=== PATIENT | female | born 1950 | race Caucasian/White ===

== ENCOUNTER → 2016-07-16 | Outpatient (CLI) | payer MEDICARE, OTHER ==
[~2016-07-16] MED LIST: AMITRIPTYLINE H50 M1 PO; AMITRIPTYLINE50 MG PO; ANTI-DIARRHEAL2 MG PO; ASPI325T6 PO; ASPIRIN 81M81 MG/TA2 PO; ASPIRIN E.C. 8181 MG PO; BACTROBAN NASA0.9 GM NS; BIOTIN5000 MCG PO; CALCIUM 600MG+D1 TAB PO; CALCIUM-MAGNES1 EAC1 PO; COZAAR 50MG50 MG/TAB PO; D-31000 IU PO; EPA FISH OIL1 SGL PO; ESTROPIPATE0.75 MG PO; FISH OIL 1000MG1 CAP PO; FLAXSEED OIL1 CAP PO; GLUCOPHAGE XR500 M1 PO; GLUCOSAMINE & C1 CA2 PO; GLUMETZA500 MG PO; HCTZ 25MG TAB25 MG PO; HYDROCODONE/APAP PO; IMODIUM A-D2 MG PO; LEVOTHYROXIN0.075 MG PO; METFORMIN500 MG PO; MOBIC 7.5MG7.5 MG PO; NORCO 325 MG-7.1 TAB PO; OMEGA-3 FISH1000 MG PO; OMEGA-31 SGL PO; PROPRANOLOL HCL40 MG PO; PROTONIX 40MG T40 MG PO; ROXICODONE 55 MG/TAB PO; SENOKOT S 50 MG1 TAB PO; SIMVASTATIN40 MG PO; SYNTHROID0.1 MG/TAB PO; THE MEDICINE S200 M2 PO; TIROSINT100 MC1 PO; ZOCOR 40MG40 MG PO; ZYRTEC 10MG10 MG PO
== END ==
LOC: MC.RAD 10:59
DX: Z12.31 Encounter for screening mammogram for malignant neoplasm of breast (principal)

== ENCOUNTER 2016-09-17 12:52 | Inpatient (IN) | payer MEDICARE, OTHER ==
[~2016-09-17] VITALS: Ht 154.9 cm; Wt 74.0 kg
[~2016-09-17 12:52] MED LIST changes: -AMITRIPTYLINE H50 M1 PO; -ANTI-DIARRHEAL2 MG PO; -ASPI325T6 PO; -ASPIRIN 81M81 MG/TA2 PO; -ASPIRIN E.C. 8181 MG PO; -BACTROBAN NASA0.9 GM NS; -BIOTIN5000 MCG PO; -CALCIUM 600MG+D1 TAB PO; -CALCIUM-MAGNES1 EAC1 PO; -COZAAR 50MG50 MG/TAB PO; -EPA FISH OIL1 SGL PO; -GLUCOPHAGE XR500 M1 PO; -GLUCOSAMINE & C1 CA2 PO; -GLUMETZA500 MG PO; -HCTZ 25MG TAB25 MG PO; -IMODIUM A-D2 MG PO; -MOBIC 7.5MG7.5 MG PO; -NORCO 325 MG-7.1 TAB PO; -OMEGA-3 FISH1000 MG PO; -OMEGA-31 SGL PO; -PROTONIX 40MG T40 MG PO; -ROXICODONE 55 MG/TAB PO; -SENOKOT S 50 MG1 TAB PO; -SYNTHROID0.1 MG/TAB PO; -THE MEDICINE S200 M2 PO; -TIROSINT100 MC1 PO; -ZOCOR 40MG40 MG PO; -ZYRTEC 10MG10 MG PO
[2016-11-28] MEDS ORDERED: HCTZ 25MG TAB25 MG PO (15:54)
[2016-11-28] MEDS ORDERED: SYNTHROID0.1 MG/TAB PO (15:54)
[2016-11-28] MEDS ORDERED: COZAAR 50MG50 MG/TAB PO (15:55)
[2016-11-28] MEDS ORDERED: MOBIC 7.5MG7.5 MG PO (15:56)
[2016-11-28] MEDS ORDERED: GLUCOPHAGE XR500 M1 PO (15:56)
[2016-11-28] MEDS ORDERED: ANTI-DIARRHEAL2 MG PO ×2 (15:58)
[2016-11-28] MEDS ORDERED: ZOCOR 40MG40 MG PO (15:58)
[2016-11-28] MEDS ORDERED: ASPIRIN E.C. 8181 MG PO (15:59)
[2016-11-28] MEDS ORDERED: AMITRIPTYLINE H50 M1 PO (15:59)
[2016-11-28] MEDS ORDERED: OMEGA-31 SGL PO (16:01)
[2016-11-28] MEDS ORDERED: THE MEDICINE S200 M2 PO (16:02)
[2016-11-28] MEDS ORDERED: CALCIUM 600MG+D1 TAB PO (16:02)
[2016-11-28] MEDS ORDERED: BIOTIN5000 MCG PO (16:03)
[2016-11-28] MEDS ORDERED: PROTONIX 40MG T40 MG PO (16:04)
[2016-12-11] VITALS (10 sets, daily range): BP systolic 90–110; BP diastolic 49–65; PULSE 67–92; TEMP 97.4–98.3
[2016-12-11] MEDS ORDERED: TIROSINT100 MC1 PO (10:29)
[2016-12-11] MEDS ORDERED: HCTZ 25MG TAB25 MG PO (10:30)
[2016-12-11] MEDS ORDERED: COZAAR 50MG50 MG/TAB PO (10:31)
[2016-12-11] MEDS ORDERED: GLUMETZA500 MG PO (10:32)
[2016-12-11] MEDS ORDERED: MOBIC 7.5MG7.5 MG PO (10:33)
[2016-12-11] MEDS ORDERED: ZYRTEC 10MG10 MG PO (10:34)
[2016-12-11] MEDS ORDERED: IMODIUM A-D2 MG PO (10:35)
[2016-12-11] MEDS ORDERED: ZOCOR 40MG40 MG PO (10:36)
[2016-12-11] MEDS ORDERED: AMITRIPTYLINE H50 M1 PO (10:36)
[2016-12-11] MEDS ORDERED: ASPIRIN 81M81 MG/TA2 PO (10:37)
[2016-12-11] MEDS ORDERED: EPA FISH OIL1 SGL PO (10:37)
[2016-12-11] MEDS ORDERED: OMEGA-3 FISH1000 MG PO (10:38)
[2016-12-11] MEDS ORDERED: THE MEDICINE S200 M2 PO (10:39)
[2016-12-11] MEDS ORDERED: CALCIUM-MAGNES1 EAC1 PO (10:40)
[2016-12-11] MEDS ORDERED: BIOTIN5000 MCG PO (10:41)
[2016-12-11] MEDS ORDERED: GLUCOSAMINE & C1 CA2 PO (10:42)
[2016-12-11] MEDS ORDERED: PROTONIX 40MG T40 MG PO (10:43)
[2016-12-11] MEDS ORDERED: NORCO 325 MG-7.1 TAB PO (10:44)
[2016-12-11] MEDS ORDERED: BACTROBAN NASA0.9 GM NS (10:44)
[2016-12-12 01:36] VITALS: BP 134/63; PULSE 88; TEMP 98.5
[2016-12-12 05:20] VITALS: BP 118/51; PULSE 88; TEMP 98.2
[2016-12-12 07:05] VITALS: BP 126/57; PULSE 88
[2016-12-12 07:12] LABS: HEMATOCRIT 31.8 % (37.0-47.0); HEMOGLOBIN 10.7 g/dl (12.5-16.0)
[2016-12-12 11:30] VITALS: BP 117/52; PULSE 62; TEMP 98.2
[2016-12-12 15:52] VITALS: BP 126/71; PULSE 98
[2016-12-12 21:39] VITALS: BP 116/65; PULSE 88; TEMP 98.5
[2016-12-13 05:10] VITALS: BP 145/75; PULSE 95; TEMP 98.6
[2016-12-13 07:20] LABS: HEMOGLOBIN 11.1 g/dl (12.5-16.0)
[2016-12-13 07:33] VITALS: BP 130/51; PULSE 84; TEMP 98.2
[2016-12-13 11:15] VITALS: BP 117/56; PULSE 87; TEMP 98.2
[2016-12-13 21:53] VITALS: BP 117/52; PULSE 99; TEMP 98.5
[2016-12-14 05:50] VITALS: BP 126/54; PULSE 83; TEMP 98.3
[2016-12-14] MEDS ORDERED: ASPI325T6 PO (06:48)
[2016-12-14] MEDS ORDERED: NORCO 325 MG-7.1 TAB PO (06:49)
[2016-12-14] MEDS ORDERED: SENOKOT S 50 MG1 TAB PO (06:50)
[2016-12-14] MEDS ORDERED: ROXICODONE 55 MG/TAB PO (06:50)
[2016-12-14 06:57] LABS: HEMATOCRIT 28.5 % (37.0-47.0); HEMOGLOBIN 9.5 g/dl (12.5-16.0)
[2016-12-14 08:53] VITALS: BP 106/57; PULSE 98
== END 2016-12-14 11:20 | disposition home or self-care (01) | DRG 470 ==
LOC: JCC 12-11 07:30 → INPTSU 12-11 08:49 → JCC 12-11 14:15 → SURG 12-11 17:09
PROVIDERS: Orthopaedic Surgery
PROC: 0SRC0J9 Replacement of Right Knee Joint with Synthetic Substitute, Cemented, Open Approach (ICD-10-PCS; principal; 2016-12-11 14:15)
DX: M17.11 Unilateral primary osteoarthritis, right knee (principal)
CPT/HCPCS: A4315; A9284; C1713; C1776; J2250; J2270; J2704; J3370; J7050; J7120

== ENCOUNTER → 2016-11-29 | Outpatient (CLI) | payer MEDICARE, OTHER ==
[~2016-11-29] MED LIST changes: +AMITRIPTYLINE H50 M1 PO; +ANTI-DIARRHEAL2 MG PO; +ASPI325T6 PO; +ASPIRIN 81M81 MG/TA2 PO; +ASPIRIN E.C. 8181 MG PO; +BACTROBAN NASA0.9 GM NS; +BIOTIN5000 MCG PO; +CALCIUM 600MG+D1 TAB PO; +CALCIUM-MAGNES1 EAC1 PO; +COZAAR 50MG50 MG/TAB PO; +EPA FISH OIL1 SGL PO; +GLUCOPHAGE XR500 M1 PO; +GLUCOSAMINE & C1 CA2 PO; +GLUMETZA500 MG PO; +HCTZ 25MG TAB25 MG PO; +IMODIUM A-D2 MG PO; +MOBIC 7.5MG7.5 MG PO; +NORCO 325 MG-7.1 TAB PO; +OMEGA-3 FISH1000 MG PO; +OMEGA-31 SGL PO; +PROTONIX 40MG T40 MG PO; +ROXICODONE 55 MG/TAB PO; +SENOKOT S 50 MG1 TAB PO; +SYNTHROID0.1 MG/TAB PO; +THE MEDICINE S200 M2 PO; +TIROSINT100 MC1 PO; +ZOCOR 40MG40 MG PO; +ZYRTEC 10MG10 MG PO
== END ==
LOC: COL.LAB 11-26 13:43
DX: Z01.812 Encounter for preprocedural laboratory examination (principal)

== ENCOUNTER → 2017-05-31 | Outpatient (CLI) | payer MEDICARE, OTHER | LOC: COL.RAD 05-30 09:45 | DX: Z01.89 Encounter for other specified special examinations (principal) ==

== ENCOUNTER → 2017-08-16 | Outpatient (CLI) | payer MEDICARE, OTHER | LOC: MC.RAD 14:20 | DX: Z12.31 Encounter for screening mammogram for malignant neoplasm of breast (principal) ==

== ENCOUNTER → 2018-10-30 | Outpatient (CLI) | payer MEDICARE, OTHER | LOC: MC.RAD 13:07 | DX: Z12.31 Encounter for screening mammogram for malignant neoplasm of breast (principal) ==